=== PATIENT | male | born 1955 | race Caucasian/White ===

== ENCOUNTER 2017-03-28 19:48 | Emergency (ER) | payer OTHER ==
[~2017-03-28] VITALS: Ht 193 cm; Wt 109.9 kg
[~2017-03-28 19:48] MED LIST: ACID CONTROL150 MG PO; ALPRAZOLAM0.5 MG PO; ALPRAZOLAM1 MG PO; ASPIR-LOW81 MG PO; ATARAX,VISTARIL25 MG PO; ATORVASTATIN CA40 MG PO; AUGMENTIN875 MG PO; Advair 500/50 Diskus IH; Aspirin E.C. PO; BUPROPION XL150 MG PO; CLONAZEPAM0.5 MG PO; COLACE100 MG PO; COMBIVENT RESPIM4 GM IH; COUMADIN1 MG PO; COUMADIN5 MG PO; CYMBALTA60 MG PO; DELTASONE20 M1 PO; ELAVIL25 MG PO; ENDOCET 5-3251 EACH PO; FLEXERIL10 MG PO; FUROSEMIDE20 MG PO; LOPRESSOR25 MG PO; LOPRESSOR50 MG PO; LOVAZA1 GM PO; LOVENOX150 MG/1 M SC; LYRICA50 MG PO; Lasix PO; METOPROLOL TART50 MG PO; MIRTAZAPINE45 MG PO; OXYCODONE HCL5 MG PO; PERCOCET 5/31 TABLET PO; PREDNISONE20 MG PO; Proventil,Ventolin H IH; QVAR 40 MCG IH; STOOL SOFTENER100 MG PO; SYMBICORT60 INHALAT IH; TEKTURNA PO; TRAZODONE HCL150 MG PO; ULTRAM50 MG PO; VENTOLIN HFA18 GM IH; VICODIN ES 7.51 EAC1 PO; XANAX0.5 MG PO; XARELTO20 MG PO; ZITHROMAX Z-PA250 MG PO; ZOLPIDEM TARTRA10 MG PO; Zithromax PO; predniSONE PO
[2017-03-28] MEDS ORDERED: PERCOCET 5/31 TABLET PO (20:41)
[2017-03-28] MEDS ORDERED: PEN-VEE K,VEET500 MG PO (20:41)
[2017-03-28 20:55] VITALS: BP 149/122
== END 2017-03-28 20:56 | disposition home or self-care (01) ==
LOC: EME 19:48
DX: K08.89 Other specified disorders of teeth and supporting structures (principal); F17.200 Nicotine dependence, unspecified, uncomplicated; I10 Essential (primary) hypertension; Z86.73 Personal history of transient ischemic attack (TIA), and cerebral infarction without residual deficits; Z79.01 Long term (current) use of anticoagulants
CPT/HCPCS: 99281; 99283

== ENCOUNTER 2017-04-05 00:44 | Emergency (ER) | payer OTHER ==
[~2017-04-05] VITALS: Ht 193 cm; Wt 109.0 kg
[~2017-04-05 00:44] MED LIST changes: +PEN-VEE K,VEET500 MG PO
[2017-04-05 01:25] LABS: HEMATOCRIT 43.8 % (38.0-50.0); MCH 31.6 PG (29.0-34.0); MCHC 35.2 G/DL (30.0-36.0); MCV 89.8 FL (86-99); MEAN PLAT.VOLUME 10.1 uM^3 (9.0-12.4); PLATELET COUNT 206 K/uL (156-360); RBC DIS.WIDTH-CV 12.3 % (11.8-14.6); RBC DIS.WIDTH-SD 40.2 % (39-53); RED BLOOD COUNT 4.88 M/uL (4.00-5.50)
[2017-04-05 01:35] LABS: CHLORIDE 106 mEq/L (99-109); POTASSIUM 3.8 mEq/L (3.7-5.4); SODIUM 138 mEq/L (136-147)
[2017-04-05 01:36] LABS: GLUCOSE 102 mg/dL (70-99)
[2017-04-05 01:38] LABS: ANION GAP 11 MEQ/L (2-14)
[2017-04-05 01:40] LABS: GFR ESTIMATE (CALCULATED) 54 mL/min/
[2017-04-05 01:41] LABS: UREA NITROGEN (BUN) 11 mg/dL (9-23)
[2017-04-05] MEDS ORDERED: TRAMADOL HCL50 MG PO (04:06)
[2017-04-05 04:23] LABS: SERUM ETHYL ALCOHOL 253 mg/dL
[2017-04-05 04:26] LABS: INTER. NORMALIZED RATIO 1.3
[2017-04-05 05:11] VITALS: BP 120/85
== END 2017-04-05 05:12 | disposition home or self-care (01) ==
LOC: EXP 00:44 → EME 00:44 → EXP 05:12
DX: S02.2XXA Fracture of nasal bones, initial encounter for closed fracture (principal); F10.129 Alcohol abuse with intoxication, unspecified; Y90.8 Blood alcohol level of 240 mg/100 ml or more; R79.1 Abnormal coagulation profile; W18.30XA Fall on same level, unspecified, initial encounter; I10 Essential (primary) hypertension; J44.9 Chronic obstructive pulmonary disease, unspecified; F32.9 Major depressive disorder, single episode, unspecified; I25.2 Old myocardial infarction; Z86.718 Personal history of other venous thrombosis and embolism; Z79.01 Long term (current) use of anticoagulants; F17.200 Nicotine dependence, unspecified, uncomplicated
CPT/HCPCS: 70450; 70486; 71020; 72125; 80048; 85027; 85610; 85730; 93005; 99281; 99284; G0480

== ENCOUNTER 2018-01-24 05:42 | Emergency (ER) | payer OTHER ==
[~2018-01-24] VITALS: Ht 193 cm; Wt 114.1 kg
[~2018-01-24 05:42] MED LIST changes: +TRAMADOL HCL50 MG PO
[2018-01-24 07:06] LABS: BASOPHIL (%) 1.2 % (0-1); BASOPHIL COUNT 0.1 K/uL (0-0.1); EOSINOPHIL (%) 4.2 % (0-5); EOSINOPHIL COUNT 0.4 K/uL (0-0.3); HEMATOCRIT 43.1 % (38.0-50.0); HEMOGLOBIN 15.2 G/DL (12.5-16.6); IMMATURE GRANULOCYTE (%) 0.5 % (0.0-0.7); LYMPHOCYTE (%) 18.9 % (15-42); LYMPHOCYTE COUNT 1.6 K/uL (1.0-2.8); MCH 32.4 PG (29.0-34.0); MCHC 35.3 G/DL (30.0-36.0); MCV 91.9 FL (86-99); MONOCYTE (%) 9.8 % (3-12); MONOCYTE COUNT 0.8 K/uL (0-0.8); NEUTROPHIL (%) 65.4 % (45-76); NEUTROPHIL COUNT 5.4 K/uL (1.8-6.4); PLATELET COUNT 169 K/uL (156-360); RBC DIS.WIDTH-CV 12.9 % (11.8-14.6); RBC DIS.WIDTH-SD 43.4 % (39-53); RED BLOOD COUNT 4.69 M/uL (4.00-5.50); WHITE BLOOD COUNT 8.3 K/uL (4.1-10.2)
[2018-01-24 07:14] LABS: INTER. NORMALIZED RATIO 1.6
[2018-01-24 07:39] LABS: CHLORIDE 104 MEQ/L (99-109); CREATININE 1.1 MG/DL (0.6-1.3); GFR ESTIMATE (CALCULATED) > 59 mL/min/ (58.99-99999); GLUCOSE 90 mg/dL (70-99); POTASSIUM 4.1 MEQ/L (3.7-5.4); SODIUM 137 MEQ/L (136-147); UREA NITROGEN (BUN) 8 mg/dL (9-23)
[2018-01-24] MEDS ORDERED: TYLENOL WITH C1 EACH PO (09:38)
[2018-01-24 10:09] VITALS: BP 137/88
== END 2018-01-24 10:31 | disposition home or self-care (01) ==
LOC: EME 05:42
PROVIDERS: Emergency Medicine
DX: M79.642 Pain in left hand (principal); R20.0 Anesthesia of skin; R47.81 Slurred speech; Z86.73 Personal history of transient ischemic attack (TIA), and cerebral infarction without residual deficits; Z79.01 Long term (current) use of anticoagulants; I48.91 Unspecified atrial fibrillation; I10 Essential (primary) hypertension; I25.2 Old myocardial infarction; Z86.718 Personal history of other venous thrombosis and embolism; F32.9 Major depressive disorder, single episode, unspecified; J43.9 Emphysema, unspecified; F17.200 Nicotine dependence, unspecified, uncomplicated
CPT/HCPCS: 70450; 70551; 80048; 85025; 85610; 93005; 99281; 99285